=== PATIENT | female | born 1945 | race Caucasian/White ===

== ENCOUNTER 2020-08-26 16:44 | Emergency (ER) | payer MEDICARE ==
[2020-08-26] MEDS ORDERED: Lidocaine 2% 20 ml MDV ONE (17:12)
--- NOTE | 2020-08-26 17:36 | CT ---
CT BRAIN NONCONTRAST: DATE: 08/26/2020 HISTORY: 75-year-old female status post acute traumatic head injury FINDINGS: There is no evidence of acute intra-axial or extra-axial hemorrhage. There is no midline shift or any other mass effect. There is no extra-axial fluid collection. There is no evidence of obstructive hydrocephalus. Calvarium is intact. IMPRESSION: No acute intracranial findings.
--- NOTE | 2020-08-26 17:40 | CT ---
CT maxillofacial noncontrast: 08/26/2020 HISTORY: 75-year-old female status post acute facial traumatic injury from fall FINDINGS: No acute fracture. There is soft tissue contusion/hematoma with edema around mandible. Orbits are clear. No air-fluid levels in paranasal sinuses. High-grade DJD bilateral TMJs. IMPRESSION: 1. No acute fracture identified. 2. Acute, traumatic left perimandibular soft tissue contusion-hematoma. 3. 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
--- NOTE | 2020-08-26 17:52 | CT ---
CT CERVICAL SPINE WITHOUT CONTRAST: Date: 08/26/2020 HISTORY: Fall, injury, neck pain. FINDINGS: Multilevel degenerative changes are seen. There is loss of cervical lordosis with minimal reversal. N o acute fracture, subluxation, or facet malalignment is identified. The prevertebral soft tissues are normal. No apical pneumothoraces are seen. IMPRESSION: No CT evidence of acute cervical spine fracture or traumatic subluxation. POS: [facility]
== END 2020-08-26 19:01 | disposition home or self-care (01) ==
LOC: MADERS 16:44
DX: S01.511A Laceration without foreign body of lip, initial encounter (principal); S80.02XA Contusion of left knee, initial encounter; M79.89 Other specified soft tissue disorders; I10 Essential (primary) hypertension; W01.10XA Fall on same level from slipping, tripping and stumbling with subsequent striking against unspecified object, initial encounter
CPT/HCPCS: 12013; 40650; 70450; 70486; 72125